=== PATIENT | male | born 1975 | race Caucasian/White ===

== ENCOUNTER → 2018-09-20 | Outpatient (CLI) | payer BC ==
[2018-09-20 11:34] LABS: ANION GAP 11 (6-14); BLOOD UREA NITROGEN 13 mg/dL (8-26); CARBON DIOXIDE 26 mmol/L (21-32); CHLORIDE 107 mmol/L (98-107); CHOLESTEROL 261 mg/dL (0-200); CREATININE 0.9 mg/dL (0.7-1.3); DIG 0.3 ng/mL (0.9-2.0); GFR 91.7; GLUCOSE 110 mg/dL (70-99); HDLC 34 mg/dL (40-60); LDLC 183 mg/dL (0-100); POTASSIUM 4.1 mmol/L (3.5-5.1); SODIUM 144 mmol/L (136-145); TRIGLYCERIDES 221 mg/dL (0-150); VLDLC 44 mg/dL (0-40)
[2018-09-20 11:36] LABS: CHOLESTEROL/HDL RATIO 7.7
== END | disposition home or self-care (01) ==
LOC: LAB 10:30
PROVIDERS: ATTEND Internal Medicine Cardiovascular Disease
DX: I10 Essential (primary) hypertension (principal); I47.1 Supraventricular tachycardia
CPT/HCPCS: 36415; 80048; 80061; 80162; 84443

== ENCOUNTER → 2019-05-15 | Outpatient (CLI) | payer BC ==
[2019-05-15 10:32] LABS: CALCIUM 9.2 mg/dL (8.5-10.1); CHOLESTEROL/HDL RATIO 4.4; CREATININE 0.9 mg/dL (0.7-1.3); DIRECT BILIRUBIN 0.1 mg/dL (0.0-0.2); GFR 91.3; POTASSIUM 4.2 mmol/L (3.5-5.1); TOTAL BILIRUBIN 0.6 mg/dL (0.2-1.0); TOTAL PROTEIN 7.4 g/dL (6.4-8.2)
== END | disposition home or self-care (01) ==
LOC: LAB 09:55
PROVIDERS: ATTEND Internal Medicine Cardiovascular Disease
DX: I10 Essential (primary) hypertension (principal); E78.5 Hyperlipidemia, unspecified
CPT/HCPCS: 36415; 80048; 80061; 80076